=== PATIENT | male | born 1945 | race Caucasian/White ===

== ENCOUNTER 2018-10-15 09:32 | Emergency (ER) | payer BC, MEDICARE ==
[2018-10-15 09:48] VITALS: BP 151/92
--- NOTE | 2018-10-15 09:58 | UC ---
Ear Complaint HPI - HPI Summary HPI Summary: 72 yo male presents with RIGHT ear pain for 2 days getting progressively worse. He just came back from vacation today and tells me that he was scuba diving and unsure if this has anything to do with her ear pain. He denies injury, fever, sinus symptoms, sore throat. - History of Current Complaint Chief Complaint: UCEar Stated Complaint: R EAR COMPLAINT Hx Obtained From: Patient Onset/Duration: Gradual Onset Severity Initially: Mild Severity Currently: Mild Pain Intensity: 4 Pain Scale Used: 0-10 Numeric - Allergies/Home Medications Allergies/Adverse Reactions: Allergies Allergy/AdvReac Type Severity Reaction Status Date / Time No Known Allergies Allergy Verified 10/15/18 09:43 Home Medications: Home Medications Dapagliflozin Propanediol [Farxiga] 5 mg PO DAILY 10/15/18 [History Confirmed ] Sitagliptin Phosphate [Januvia] 25 mg PO DAILY 10/15/18 [History Confirmed 10/15] metFORMIN* [Glucophage 500 MG TAB *] 500 mg PO BID 10/15/18 [History Confirmed 10/15/18] PMH/Surg Hx/FS Hx/Imm Hx Endocrine History: Diabetes - Surgical History Surgical History: Yes Surgery Procedure, Year, and Place: RT HERNIA REPAIR, 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,ORCHIECTOMY RT SIDE - Family History Known Family History: Positive: Diabetes - Social History Occupation: Retired Lives: With Family Alcohol Use: None Substance Use Type: None Smoking Status (MU): Never Smoked Tobacco Review of Systems All Other Systems Reviewed And Are Negative: Yes Constitutional: Positive: Negative Skin: Positive: Negative Eyes: Positive: Negative ENT: Positive: Ear Ache Respiratory: Positive: Negative Cardiovascular: Positive: Negative Neurovascular: Positive: Negative Neurological: Positive: Negative Psychological: Positive: Negative Physical Exam - Summary Physical Exam Summary: GENERAL: NAD. WDWN. No pain distress. SKIN: No rashes, sores, lesions, or open wounds. HEENT: Head: AT/NC Eyes: EOM intact. Conjunctiva clear without inflammation or discharge. Ears: Hearing grossly normal. RIGHT TM occluded by cerumen. S/p disimpaction: canal with mild white/yellow purulent drainage. TM intact and WNL. Nose: Nasal mucosa pink and moist. NTTP maxillary and frontal sinus. Throat: Posterior oropharynx without exudates, erythema, or tonsillar enlargement. Uvula midline. NECK: Supple. Nontender. No lymphadenopathy. CHEST: CTAB. No r/r/w. No accessory muscle use. Breathing comfortably and in no distress. CV: RRR. Without m/r/g. Pulses intact. NEURO: Alert. PSYCH: Age appropriate behavior. Triage Information Reviewed: Yes Vital Signs: Initial Vital Signs Temp 98.1 F 10/15/18 09:45 Pulse 74 10/15/18 09:45 Resp 16 10/15/18 09:45 BP 151/92 10/15/18 09:45 Pulse Ox 100 10/15/18 09:45 Vital Signs Reviewed: Yes Ear Complaint Course/Dx - Course Course Of Treatment: The right ear canal was occluded by cerumen. Disimpaction and irrigation was successful and revealed Right otitis externa. - Differential Dx/Diagnosis Provider Diagnosis: Right otitis externa, Impacted cerumen of right ear Discharge - Sign-Out/Discharge Documenting (check all that apply): Patient Departure All imaging exams completed and their final reports reviewed: No Studies - Discharge Plan Condition: Stable Disposition: HOME Prescriptions: Ofloxacin 0.3% (Ear Drop)* [Floxin 0.3% OTIC.KENNETH (Ear Drop)] 5 drop RIGHT EAR BID #1 btl Patient Education Materials: Otitis Externa (ED), Cerumen Impaction (ED) Referrals: No Primary Care Phys,NOPCP [Primary Care Provider] - Additional Instructions: If you develop a fever, shortness of breath, chest pain, new or worsening symptoms - please call your PCP or go to the ED. Your blood pressure was high at todays visit. Please see your primary provider within 4 weeks for recheck and re-evaluation. - Billing Disposition and Condition Condition: STABLE Disposition: Home
== END 2018-10-15 10:18 | disposition home or self-care (01) ==
LOC: UCEAST 09:32
DX: H60.91 Unspecified otitis externa, right ear (principal); H61.21 Impacted cerumen, right ear; Z79.84 Long term (current) use of oral hypoglycemic drugs; E11.9 Type 2 diabetes mellitus without complications
CPT/HCPCS: 99203; G0463